=== PATIENT | female | born 1955 | race Caucasian/White ===

== ENCOUNTER 2021-12-12 12:21 | Emergency (ER) | payer BC, MEDICARE ==
[2021-12-12] MEDS ORDERED: Dexamethasone 10 MG/ML VIAL ONE (14:06)
== END 2021-12-12 14:14 | disposition home or self-care (01) ==
LOC: ERS 12:21
DX: B34.9 Viral infection, unspecified (principal)
CPT/HCPCS: 71045; 87081; 87430; J1100

== ENCOUNTER 2023-03-06 11:25 | Outpatient (CLI) | payer MEDICARE | END 2023-03-06 11:26 | disposition home or self-care (01) | LOC: BICMAMMO 11:25 | PROVIDERS: ATTEND Family Medicine | DX: Z12.31 Encounter for screening mammogram for malignant neoplasm of breast (principal) | CPT/HCPCS: 77063; 77067 ==

== ENCOUNTER 2023-05-05 13:30 | Inpatient (IN) | payer MEDICARE ==
[2023-06-02 13:32] VITALS: BMI 33.2
[2023-06-04] MEDS ORDERED: SUGAMMADEX SODIUM 200 MG/2 ML VIAL ONE (08:11)
[2023-06-04] MEDS ORDERED: PROPOFOL 20 ML ONE (08:11)
[2023-06-04] MEDS ORDERED: Fentanyl 250 MCG/5 ML VIAL ONE (08:11)
[2023-06-04] MEDS ORDERED: Rocuronium Bromide 10 MG/ML (10ML VIAL) ONE (08:12)
[2023-06-04] MEDS ORDERED: Ondansetron PF 4 MG/2 ML Vial ONE (08:12)
[2023-06-04] MEDS ORDERED: Lidocaine 1% PF 5 ML VIAL ONE (08:12)
[2023-06-04] MEDS ORDERED: Dexamethasone 4 mg/ml Vial ONE (08:12)
[2023-06-04] MEDS ORDERED: Indocyanine Green 25 MG/10 ML VIAL ONE (08:53)
[2023-06-04] MEDS ORDERED: EPINEPHrine 1 MG/ML VIAL ONE (08:53)
[2023-06-04] MEDS ORDERED: Bupivacaine 0.25% HCL 30 ML VIAL ONE ×2 (08:54→09:35)
[2023-06-04] MEDS ORDERED: cefOXitin 2 GM VIAL ONE (09:14)
[2023-06-04] MEDS ORDERED: Sodium Chloride 0.9% 100 ML ONE (09:14)
[2023-06-04] MEDS ORDERED: HYDROmorphone 0.5 MG/0.5 ML SYRINGE ONE (09:21)
[2023-06-04] MEDS ORDERED: Ketamine In 0.9 % NaCl 50 MG/5 ML SYRINGE ONE (09:21)
[2023-06-04] MEDS ORDERED: Albuterol HFA (OR) 200 PUFF INH ONE (09:30)
[2023-06-04] MEDS ORDERED: Albuterol Sulfate 200 PUFF INH ONE (09:34)
[2023-06-04] MEDS ORDERED: Phenylephrine 10 MG/ML VIAL ONE (09:37)
[2023-06-04] MEDS ORDERED: Glycopyrrolate 0.2 MG/ML 5 ML SYRINGE ONE (10:16)
[2023-06-04] MEDS ORDERED: ePHEDrine Sulfate 50 MG/10 ML VIAL ONE (11:42)
[2023-06-04] MEDS ORDERED: Ketorolac Tromethamine 30 MG (1 mL) VIAL ONE (12:04)
[2023-06-04] MEDS ORDERED: diphenhydrAMINE 50 MG/ML VIAL IM PRN (12:06)
[2023-06-04] MEDS ORDERED: diphenhydrAMINE 25 MG CAP PO PRN (12:06)
[2023-06-04] MEDS ORDERED: diphenhydrAMINE 50 MG/ML VIAL IVP PRN (12:06)
[2023-06-04] MEDS ORDERED: Ondansetron PF 4 MG/2 ML Vial IVP PRN ×2 (12:06→12:29)
[2023-06-04] MEDS ORDERED: Naloxone HCl 0.4 mg/ml Vial IV PRN (12:06)
[2023-06-04] MEDS ORDERED: FENTANYL 500 MCG/10 ML VIAL 2,000 MCG in Sodium Chloride 0.9% 60 ML IV PRN (12:06)
[2023-06-04] MEDS ORDERED: Ondansetron HCl/PF 4 MG/2 ML Vial IVP PRN (12:06)
[2023-06-04] MEDS ORDERED: Promethazine HCl 25 MG/ML VIAL IM PRN ×3 (12:06→12:29)
[2023-06-04] MEDS ORDERED: Communication Order-Pharmacy FS SCH (12:15)
[2023-06-04] MEDS ORDERED: Morphine 10 MG/ML VIAL SLOW IVP PRN (12:29)
[2023-06-04] MEDS ORDERED: Ipratropium/Albuterol 3 ML NEB NEB PRN (12:29)
[2023-06-04] MEDS ORDERED: Morphine 4 MG/ML VIAL SLOW IVP PRN (12:29)
[2023-06-04] MEDS ORDERED: Morphine 2 MG/ML VIAL SLOW IVP PRN (12:29)
[2023-06-04] MEDS ORDERED: hydrALAZINE 20 MG/ML VIAL SLOW IVP PRN (12:29)
[2023-06-04] MEDS: cefOXitin 2 GM in Sodium Chloride 0.9% 100 ML IVPB SCH (16:29)
[2023-06-04] MEDS: Sodium Chloride 0.9% 1,000 ML IV SCH (16:30)
[2023-06-04] MEDS: Ketorolac Tromethamine 30 MG (1 mL) VIAL IVP SCH (17:46)
[2023-06-04] MEDS: Famotidine 20 MG TAB PO SCH (20:16)
[2023-06-04] MEDS: Famotidine/PF 20 mg/2ml Vial SLOW IVP SCH (20:16)
[2023-06-05 04:19] LABS: #Monocytes 0.9 thou/uL (0.11-0.59); #Neutrophils 6.4 thou/uL (1.40-6.50); %Basophils 0.1 % (0.0-1.0); %Lymphocytes 8.4 % (21.0-51.0); %Monocytes 10.9 % (0.0-10.0); %Neutrophils 80.2 % (42.0-75.0); Hematocrit 30.9 % (36.0-47.0); Hemoglobin 9.9 g/dL (12.0-16.0); Mean Corpuscular Hemoglobin 28.3 pg (27.0-31.0); Mean Corpuscular Volume 88.3 fl (78.0-98.0); Mean Platelet Volume 10.6 fL (7.4-10.4); Platelet Count 193 10x3/uL (130-400); RBC Distribution Width 14.5 % (11.5-14.5)
[2023-06-05 04:34] LABS: Anion Gap 9 mmol/L (10-20); BUN (Urea Nitrogen) 13 mg/dL (9.8-20.1); Calc. Creatinine Clearance 68 mL/min (70-130); Calcium 8.4 mg/dL (7.8-10.44); Carbon Dioxide 26 mmol/L (23-31); Chloride 109 mmol/L (98-107); Estimated GFR 61; Glucose 132 mg/dL (80-115); Potassium 4.6 mmol/L (3.5-5.1); Sodium 139 mmol/L (136-145)
[2023-06-05] MEDS: Enoxaparin 40 MG (0.4 mL) SYRINGE SC SCH (09:15)
[2023-06-05] MEDS: DC PCA Order Set 1 EACH FS ONE (17:29)
[2023-06-05] MEDS: Sodium Chloride 0.9% 1,000 ML IV SCH (17:31)
[2023-06-05] MEDS: HYDROcodone/Acetaminophen 7.5/325 mg Tablet PO PRN (18:13)
[2023-06-06] MEDS: HYDROcodone/Acetaminophen 7.5/325 mg Tablet PO PRN (12:16)
[2023-06-06 15:44] VITALS: BP 113/60; TEMP 97.6
[2023-06-07] MEDS ORDERED: FLU VACC QS2023(65UP)/MF59C/PF 60 MCG/0.5 ML SYRINGE IM ONE (09:00)
== END 2023-06-06 17:25 | disposition home or self-care (01) | DRG 331 ==
LOC: EDSTATUS 06-02 13:00 → SURG A 06-04 06:16 → MSONC 06-04 15:12 → SURG A 06-04 19:45
PROVIDERS: ADMIT Surgery; ATTEND Surgery
PROC: 0DBN4ZZ Excision of Sigmoid Colon, Percutaneous Endoscopic Approach (ICD-10-PCS; principal; 2023-06-04)
PROC: 8E0W4CZ Robotic Assisted Procedure of Trunk Region, Percutaneous Endoscopic Approach (ICD-10-PCS; 2023-06-04)
DX: C18.7 Malignant neoplasm of sigmoid colon (principal); Z79.899 Other long term (current) drug therapy; Z82.49 Family history of ischemic heart disease and other diseases of the circulatory system; F41.9 Anxiety disorder, unspecified; E78.5 Hyperlipidemia, unspecified
CPT/HCPCS: 36415; 36416; 80048; 85025; 88305; 88309; A4649; J0171; J0665; J0694; J1100; J1170; J1650; J1885; J2371; J2405; J2704; J3010; J3490; J7050; S0028

== ENCOUNTER 2023-05-19 12:42 | Outpatient (CLI) | payer MEDICARE ==
[2023-05-19 13:45] LABS: #Eosinphils 0.2 10x3/uL (0.0-0.5); #Monocytes 0.4 10x3/uL (0.0-1.1); #Neutrophils 2.7 10x3/uL (1.5-8.4); %Basophils 0.8 % (0.0-2.0); %Eosinophils 4.9 % (0.0-6.0); %Lymphocytes 29.5 % (18.0-47.0); %Monocytes 8.5 % (0.0-10.0); %Neutrophils 56.1 % (40.0-75.0); Hematocrit 37.1 % (34.9-44.5); Hemoglobin 12.3 g/dL (12.0-15.5); Mean Corpuscular HGB CONC 33.2 g/dL (32.0-36.0); Mean Corpuscular Hemoglobin 27.7 pg (27.0-33.0); Mean Corpuscular Volume 83.6 fl (81.6-98.3); Mean Platelet Volume 10.2 fl (7.4-10.4); Platelet Count 231 10x3/uL (150-450); Red Blood Cell (RBC) Count 4.44 10x6/uL (3.90-5.03); White Blood Cell (WBC) Count 4.9 10x3/uL (3.5-10.5)
[2023-05-19 15:07] LABS: ALT (SGPT) 15 U/L (8-55); AST (SGOT) 12 U/L (5-34); Albumin 4.2 g/dL (3.4-4.8); Alkaline Phosphatase 71 U/L (40-110); Anion Gap 9 mmol/L (10-20); BUN (Urea Nitrogen) 11 mg/dL (9.8-20.1); Bilirubin, Total 0.7 mg/dL (0.2-1.2); Calc. Creatinine Clearance 0 mL/min (70-130); Carbon Dioxide 27 mmol/L (23-31); Chloride 106 mmol/L (98-107); Estimated GFR 78; Globulin 2.5 g/dL (2.4-3.5); Glucose 109 mg/dL (80-115); Potassium 4.4 mmol/L (3.5-5.1); Protein, Total 6.7 g/dL (5.8-8.1); Sodium 138 mmol/L (136-145)
[2023-05-19 20:29] LABS: Hemoglobin A1c 6.2 % (4.0-6.0)
== END 2023-05-19 12:43 | disposition home or self-care (01) ==
LOC: LABBT 12:42
PROVIDERS: ATTEND Surgery
DX: Z01.818 Encounter for other preprocedural examination (principal); C18.9 Malignant neoplasm of colon, unspecified
CPT/HCPCS: 80053; 83036; 85025; 93005; 93010

== ENCOUNTER 2023-05-27 13:52 | Outpatient (CLI) | payer MEDICARE | END 2023-05-27 13:53 | disposition home or self-care (01) | LOC: BICRAD 13:52 | PROVIDERS: ATTEND Family Medicine | DX: R05.3 Chronic cough (principal) | CPT/HCPCS: 71046 ==

== ENCOUNTER 2023-06-25 10:01 | Outpatient (CLI) | payer MEDICARE | END 2023-06-25 10:02 | disposition home or self-care (01) | LOC: LABBT 10:01 | PROVIDERS: ATTEND Surgery | DX: Z01.810 Encounter for preprocedural cardiovascular examination (principal); C18.9 Malignant neoplasm of colon, unspecified | CPT/HCPCS: 93005; 93010 ==

== ENCOUNTER → 2023-06-27 | Day surgery (SDC) | payer MEDICARE ==
[2023-06-25 11:09] VITALS: BMI 32.1
[~2023-06-27] MED LIST: Bupivacaine 0.25% HCL 30 ML VIAL ONE; CEFAZOLIN 2 GM VIAL ONE; Dexamethasone 20 MG/5 ML VIAL ONE; EPINEPHrine 1 MG/ML VIAL ONE; Lidocaine 1% MPF 2 ML VIAL ONE; Lidocaine 1% PF 5 ML VIAL ONE; Midazolam HCl 2 mg/2 ml Vial ONE; Ondansetron PF 4 MG/2 ML Vial ONE; PROPOFOL 20 ML ONE; Sodium Chloride 0.9% 100 ML ONE; ePHEDrine Sulfate 50 MG/10 ML VIAL ONE; fentaNYL PF 100 MCG/2 ML SYRINGE ONE
== END | disposition home or self-care (01) ==
LOC: SDC 07:40
PROVIDERS: ATTEND Surgery
PROC: 0JH60WZ Insertion of Totally Implantable Vascular Access Device into Chest Subcutaneous Tissue and Fascia, Open Approach (ICD-10-PCS; principal; 2023-06-27)
DX: C18.9 Malignant neoplasm of colon, unspecified (principal); C79.9 Secondary malignant neoplasm of unspecified site
CPT/HCPCS: 36561; 71045; C1788; J0171; J0665; J1100; J1642; J2250; J2405; J2704; J3490

== ENCOUNTER 2023-07-03 07:50 | Outpatient (CLI) | payer MEDICARE | END 2023-07-03 07:51 | disposition home or self-care (01) | LOC: BICCT 07:50 | PROVIDERS: ATTEND Internal Medicine Hematology & Oncology | DX: C18.7 Malignant neoplasm of sigmoid colon (principal) | CPT/HCPCS: 71260; 74177 ==

== ENCOUNTER 2025-02-08 16:10 | Outpatient (CLI) | payer MEDICARE | END 2025-02-08 16:11 | disposition home or self-care (01) | LOC: BICRAD 16:10 | PROVIDERS: ATTEND Nurse Practitioner Family | DX: R35.0 Frequency of micturition (principal) | CPT/HCPCS: 71046 ==